=== PATIENT | male | born 1960 | race Asian ===

== ENCOUNTER → 2017-04-05 | Outpatient (CLI) | payer OTHER ==
[~2017-04-05] MED LIST: BECL8.7A5 INH; MOME13HF2 IH; RISP3TAB3 PO; TRAZ50TA18 PO
--- NOTE | 2017-04-06 10:22 | HKNOTE ---
04/05/2017 Dr. Gurpreet Watson [address] [place] [address] [address]. Watson: Thank you for referring Franc Snow, who was seen in my office today complaining of pain in his left knee. He essentially has severe damage to the medial compartment of his knee from arthritis and an osteochondral defect (etiology unknown). The rest of his knee is fairly normal in appearance. The ideal treatment for him would be a unicompartmental knee replacement, and this is my recommendation. Authorization is being requested for transfer of his care to my partner, Dr. Oscar Lobato. Thank you for your confidence and continued support. With warmest regards, Dictated By: Michael Mcnamara MD /anival/digna /Document#: [id number]
--- NOTE | 2017-04-06 10:56 | HKNOTE ---
DATE OF SERVICE: 04/05/2017 REFERRING PHYSICIAN: Dr. Gurpreet Watson, [address] [place] [address] MAIN COMPLAINT: Pain in the left knee. HISTORY OF PRESENT ILLNESS: The patient is a 56-year-old male who works in a supermarket working with groceries. He complains of pain in his left knee, which has been present since August 2016. There is no history of injury to the knee. The knee had spontaneous onset. The patient was seen by Dr. Watson who obtained x-rays and MRI of the left knee. Dr. Watson noted that he had an elevated uric acid level. The patient has never had any acute severe pain of any joints in his body, especially not his left knee. Pain complaints: The pain in his left knee is aggravated by walking, weightbearing and stair climbing. The knee swells. There is no locking and there is no instability of the knee. He takes Naprosyn for the pain. This helps "somewhat". He has tried using a rubber bandage and support, also a brace. The problem seems to be getting worse. On a level surface, he can walk "3 straight blocks". He does not use a walking aid. He limps most of the time. He does not have a shoe lift. He can clip his toenails and tie his shoelaces. Sporting activities: None at this time. Past orthopedic history: Not applicable. Prior cortisone intake: By mouth via inhaler (for COPD). He was on it for 5 years. Alcohol intake: None. Other joint problems: None. Blood tests for arthritis: None (elevated uric acid). Prior injuries to hips and knees: None. 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 His work involves excessive standing, climbing, and lifting. PAST MEDICAL HISTORY: Entirely negative. PAST SURGICAL HISTORY: Entirely negative. DRUG ALLERGIES: None. MEDICATIONS: Naproxen 500 mg as needed. Omeprazole 20 mg 1 daily. Diclofenac 50 mg daily. Risperidone 3 mg before bedtime. Trazodone 50 mg at bedtime. FAMILY HISTORY: Noncontributory. SYSTEMS REVIEW: Entirely noncontributory. HABITS: The patient has never smoked. He does not drink alcoholic beverages. DIET: Vegan diet. PHYSICAL EXAMINATION: On physical examination, patient is a fit looking, 56-year-old male. He comes in with his who is a former RN, and very knowledgeable. He walks without a walking aid and his gait is normal. Vital signs: Height 5 feet 8-1/2 inches, weight 236 pounds (patient has recently lost weight and was previously 242 pounds), blood pressure 140/70, temperature 99.7. Hip examination: Both hips have full range of motion without pain. Examination of the left knee: Extension is full and flexion is full (without pain). 2+ effusion. Tender over the medial joint line. 2+ crepitus. IMAGING: Plain x-rays of the left knee obtained at [facility] Imaging is reported by Dr. Oliveros showing "a lucency of the medial femoral condyle with possibility of osteochondritis desiccans. No significant osteoporosis. No effusion. No erosions." An MRI scan of the left knee obtained on 03/02/[address] Nikhil Davison showing "medial compartment degenerative complex tear of the posterior ridge attachment of the medial meniscus involving oblique and radial elements. A flat tear of the medial meniscus body. An osteochondral defect present in the weightbearing margin in the medial femoral condyle measuring 1.5 cm x 1.1 cm, noting subchondral cystic change." "This subchondral plate is intact. No definite unstable lesion is visualized. High-grade chondral loss at the periphery of the medial tibial plateau. A large joint effusion is present." ASSESSMENT: 1. Tears of the medial meniscus of the left knee. 2. Osteochondral defect of the medial femoral condyle. 3. Elevated serum uric acid. PLAN: The patient was advised that he essentially has arthritis and a defect on the medial femoral condyle which is not going to heal by itself. There is no cartilage grafting technique that may be of benefit to him. He was advised that his options are a full knee replacement (not recommended by me) or a partial knee replacement affecting only the medial compartment of the knee. This was described to the patient and his in a fair amount of detail. She is the spokesman for the family. I reviewed Mr. Snow's imaging with my partner Dr. Oscar Lobato and he concurs that a unicompartmental knee replacement would be the ideal treatment for this man. Dr. Lobato has had extensive experience with unicompartmental knee replacements and authorization is being requested to transfer treatment of Mr. Snow to Dr. Lobato. Dictated By: Michael Mcnamara MD /anival/desi /Document#: [id number]
== END | disposition home or self-care (01) ==
LOC: HKI 14:11
DX: M25.562 Pain in left knee (principal); S83.242A Other tear of medial meniscus, current injury, left knee, initial encounter
CPT/HCPCS: G0463

== ENCOUNTER → 2018-12-31 | Outpatient (CLI) | payer OTHER ==
[~2018-12-31] MED LIST changes: +TRAZ-111 PO; -TRAZ50TA18 PO
--- NOTE | 2018-12-31 17:12 | CONS ---
Assessment/Plan Assessment/Plan Hospital Course (Demo Recall) 58-year-old male presenting with 3 months of right knee pain. Physical examination and radiographs do not fully explain the patient's symptoms and pain. In addition he has a significant Trendelenburg gait. At this time I have concerned that his pain may be referred either from his hip or lower back. His hip exam was fairly benign today but we will require radiographs for further evaluation. I do think a steroid injection to the right knee will also be helpful for both diagnostic and therapeutic purposes. Plan: Meloxicam Authorization for right knee steroid injection for both diagnostic and therapeutic purposes Authorization for right hip x-rays and AP pelvis and lumbosacral spine x-rays Follow-up after authorization is obtained. Consultation Date/Type/Reason Admit Date/Time Date of Consultation: December 31, 2018 Reason for Consultation Right knee pain Date/Time of Note DATE: 12/31/18 TIME: 17:05 Hx of Present Illness This is a 58-year-old male with a chief complaint of right knee pain. The pain began approximately 3 months ago. Of note the patient is being treated for left knee pain and osteoarthritis under Worker's Comp. claim by another physician. The patients pain is in the medial aspect of the right knee. Pain is not radiating to the lower leg. The pain is rated as a 9/10. Patient denies complaints of numbness or tingling. The pain is exacerbated by climbing stairs and ambulation, however the pain continues at rest and at night as well. Pain is not relieved by NSAID's. Patient has been taking naproxen on a p.r.n. basis as well as using ice. Duration: 3 months Injury: No Walking tolerance: 0.5 block Limp: Yes Support: Cane Swelling: Yes Crepitation: Yes Instability: Yes Stairs: Uses normally Physical Therapy: Yes Injections: No injections for right knee. Previous injections for left knee NSAIDs: Naproxen Prior surgery: No Back pain: No Hip pain: No Risk of AVN : No Patient denies fever, chills, shortness of breath, chest pain, nausea/vomiting, constipation, diarrhea, numbness, and tingling. Past Medical History Diabetes COPD Closed angle glaucoma Depression Home Meds Reported Medications Mometasone-Formoterol (Dulera) 100-5 Mcg - 13 Gm Hfa.aer.ad, 2 PUFFS IH DAILY, EA 07/01/14 Beclomethasone Dip* (Qvar 80*) 7.3 Gm Inha, 1 PUFF INH DAILY, INH 07/01/14 Trazodone Hcl* (Trazodone Hcl*) 50 Mg Tablet, 50 MG PO HS, TAB 07/01/14 Risperidone* (Risperidone*) 3 Mg Tablet, 3 MG PO DAILY, TAB 07/01/14 Allergies: Coded Allergies: No Known Allergy (Unverified , 07/01/14) Past Surgical History Past Surgical Hx: no surgical history Family History Significant Family History: no pertinent family hx Social History Alcohol Use: none Smoking Status: Former smoker Drug Use: none Exam/Review of Systems Exam Vitals Weight: 253 pounds Height: 5 foot BMI: 38.5 Heart Rate: 97 Blood Pressure: 154/78 Exam General: Alert, oriented x3. No Acute Distress. Heart: Regular rate and rhythm. Lungs: No respiratory distress. No accessory muscle use. Musculoskeletal: Right Knee This is a well developed male who is alert, oriented times three and in no apparent distress. Skin is intact over the right knee as well as the lower extremity with no abrasions, lacerations, or ulcerations. Observation of the patient's gait reveals an antalgic gait with No thrust, but with significant Trendelenburg component. Frontal plane alignment is neutral. There is mild pain on palpation of medial joint line. The patient demonstrates no grinding anteriorly with ROM. Range of motion: 0 e xtension to approximately 120 degrees of flexion. Collateral ligament testing reveals no instability with varus or valgus stress at 0 and 30 degrees of flexion. Negative Bonifacio's and negative posterior drawer. Neurovascularly intact with 5/5 EHL/tibialis anterior/gastroc. Sensation intact to light touch in a sural, saphenous, deep peroneal, superficial peroneal, medial and lateral plantar nerve distribution. Palpable, symmetric dorsalis pedis and posterior tibial pulses in both lower extremities. Hip examination normal with fluid painless full range of motion. Minimal to no tenderness palpation of the greater trochanter and IT band. Imaging Imaging The patient received a standard set of films today that were personally reviewed. Imaging included a standing bilateral knee AP, PA flexion, merchant views and a dedicated lateral of the affected knee: There is slight varus alignment of the knee. There is mild loss of joint space medial compartment(s). There is no osteophyte formation. There is no subchondral sclerosis. There are no subchondral cysts. Degenerative changes are most severe, but mild in the medial compartment(s) NEO MONTGOMERY MD December 31, 2018 17:12
--- NOTE | 2019-01-03 09:04 | RADRPT ---
PROCEDURE: XR knees CLINICAL INDICATION: bilateral knee pain. TECHNIQUE: 4 weightbearing views of the bilateral knees were obtained. COMPARISON: None. FINDINGS: Right knee: There is no acute fracture or dislocation. Osseous structures are intact. There are mild osteoarthritic changes of the medial tibio-femoral and patellofemoral compartments. There is a small knee joint effusion. Left knee: There is no acute fracture or dislocation. Osseous structures are intact. There are mild to moderate tricompartmental osteoarthritic changes of the knee, most notable at the medial tibio-fem oral compartment. Irregularity of the medial femoral condyle articular surface, may represent an oste ochondral lesion. There is a small knee joint effusion. IMPRESSION: 1. Mild medial tibio-femoral and patellofemoral right knee osteoarthritis. 2. Euye-uy-hjquvqza tricompartmental left knee osteoarthritis, most notable at the medial tibio-femo ral compartment. 3. Irregularity of the left femoral condylar articular surface, may represent an osteochondral lesio n. This could be further evaluated with MRI if clinically warranted. 4. Small bilateral knee joint effusions. RPTAT:HAJM Physician Raulito Date Time Electronically viewed and signed by Physician Raulito on 01/03/2019 09:03 /
== END | disposition home or self-care (01) ==
LOC: HKI 14:36
PROVIDERS: ATTEND Orthopaedic Surgery Adult Reconstructive Orthopaedic Surgery
DX: M25.561 Pain in right knee (principal)
CPT/HCPCS: 73564; Z7500; G0463

== ENCOUNTER → 2019-01-16 | Outpatient (CLI) | payer OTHER ==
--- NOTE | 2019-01-16 23:20 | RADRPT ---
PROCEDURE: XR Right hip and pelvis. CLINICAL INDICATION: Right hip pain and pelvic pain. TECHNIQUE: 3 views. Frontal pelvis. Frontal and lateral right hip. COMPARISON: None. FINDINGS: There is no fracture or dislocation. The soft tissues are normal. Articular surfaces are intact. There is no lytic or blastic lesion. There is no radiopaque foreign body. IMPRESSION: 1. Unremarkable images of the right hip. 2. Unremarkable frontal view of the pelvis. RPTAT: QQ .Canelo Griffith MD, Date Time Electronically viewed and signed by .Canelo Griffith MD, on 01/16/2019 23:20 .R/
--- NOTE | 2019-01-16 23:21 | RADRPT ---
AMENDMENT: 01/16/2019 11:22:30 PM Canelo Griffith M.d Correction: IMPRESSION: 1. Mild degenerative change. 2. Atherosclerosis. 3. Otherwise unremarkable images of the lumbar spine. PROCEDURE: XR Lumbar Spine. CLINICAL INDICATION: Back pain. TECHNIQUE: Three views. AP, lateral and cone-down lateral view of the lumbar spine were obtained. COMPARISON: No prior studies are available for comparison. FINDINGS: There is normal stature and alignment of the vertebrae. There is no fracture. There is no lytic or blastic lesion. The disc height is normal. Small osteophytes are present throughout. Vascular calcifications are present consistent with atherosclerosis. IMPRESSION: 1. Mild degenerative change. No new atherosclerosis. 3. Otherwise unremarkable images of the lumbar spine. RPTAT: QQ .Canelo Griffith MD, MD Date Time Electronically viewed and signed by .Canelo Griffith MD, MD on 01/16/2019 23:22 .R/
--- NOTE | 2019-01-17 20:22 | CONS ---
Consult Date/Type/Reason Admit Date/Time Initial Consult Date Date/Time of Note DATE: 01/17/19 TIME: 20:18 Subjective 58-year-old male follows up today for right knee pain. At last visit there was some concern that his pain may be radiating down from his lumbar spine and/or hip. He did get lumbar spine and hip x-rays today. At last appointment was also decided to try a right knee steroid injection for diagnostic and therapeutic purposes. Patient denies any changes in his symptoms. Objective Vitals Weight: 250 pounds Height: 5 foot 8 inches Temperature: 98.6 Heart Rate: 100 Blood Pressure: 137/86 Respiratory Rate: 12 Exam General: Alert, oriented x3. No Acute Distress. Heart: Regular rate and rhythm. Lungs: No respiratory distress. No accessory muscle use. Musculoskeletal: Right Knee This is a well developed male who is alert, oriented times three and in no apparent distress. Skin is intact over the right knee as well as the lower extremity with no abrasions, lacerations, or ulcerations. Observation of the patient's gait reveals an antalgic gait with No thrust, but with significant Trendelenburg component. Frontal plane alignment is neutral. There is mild pain on palpation of medial joint line. The patient demonstrates no grinding anteriorly with ROM. Range of motion: 0 extension to approximately 120 degrees of flexion. Collateral ligament testing reveals no instability with varus or valgus stress at 0 and 30 degrees of flexion. Negative Bonifacio's and negative posterior drawer. Neurovascularly intact with 5/5 EHL/tibialis anterior/gastroc. Sensation intact to light touch in a sural, saphenous, deep peroneal, superficial peroneal, medial and lateral plantar nerve distribution. Palpable, symmetric dorsalis pedis and posterior tibial pulses in both lower extremities. Hip examination normal with fluid painless full range of motion. Minimal to no tenderness palpation of the greater trochanter and IT band. Results/Medications Home Meds Reported Medications Mometasone-Formoterol (Dulera) 100-5 Mcg - 13 Gm Hfa.aer.ad, 2 PUFFS IH DAILY, EA 07/01/14 Beclomethasone Dip* (Qvar 80*) 7.3 Gm Inha, 1 PUFF INH DAILY, INH 07/01/14 Trazodone Hcl* (Trazodone Hcl*) 50 Mg Tablet, 50 MG PO HS, TAB 07/01/14 Risperidone* (Risperidone*) 3 Mg Tablet, 3 MG PO DAILY, TAB 07/01/14 Imaging 3V L-Spine xrays 1. Mild degenerative change. 2. Atherosclerosis. 3. Otherwise unremarkable images of the lumbar spine. AP pelvis and AP/Lat right hip: Unremarkable. Normal pelvis and hip x-rays. Assessment/Plan Hospital Course (Demo Recall) 58-year-old male follow-up for right knee pain. Radiograph examination of the lumbar spine and hip demonstrate no significant abnormalities. At this time I am recommending a right knee steroid injection for both diagnostic and therapeutic purposes. On x-rays there is minimal degenerative changes. Although examination is not consistent with one he may have a symptomatic meniscus tear. Plan: Right knee steroid injection Physical therapy Follow-up PRN Assessment/Plan (Daily) Right knee steroid injection procedure: Risks and benefits of steroid injection reviewed with patient. The risks include infection, failure, pain, swelling, nerve/tendon/ligament damage. The patient v erbalized understanding and verbal consent was obtained prior to procedure. The right knee was prepped in a sterile fashion with alcohol and betadine the site of injection was confirmed. Lateral approach was used. The skin and capsule was anesthetized with 3mL 1% lidocaine. The right knee was injected with 2mL 1% lidocaine, 2mL 0.25% bupivacaine, 40mg Depo-Medrol. Injection flowed freely. Good hemostasis was achieved and no complications noted. The patient tolerated the procedure well. Limit activity and ice for 24-48 hours NEO MONTGOMERY MD January 17, 2019 20:22
== END | disposition home or self-care (01) ==
LOC: HKI 14:39
PROVIDERS: ATTEND Orthopaedic Surgery Adult Reconstructive Orthopaedic Surgery
DX: M25.561 Pain in right knee (principal)
CPT/HCPCS: 20610; 72100; 73502; Z7500; G0463